=== PATIENT | male | born 1985 | race Caucasian/White ===

== ENCOUNTER 2020-11-30 04:57 | Inpatient (IN) | payer BC ==
[~2020-11-30] VITALS: Ht 185.4 cm; Wt 74.8 kg
--- NOTE | 2020-11-30 05:15 | NUR ---
PATIENT BIBSELF WITH C/O PRESSURE ON CHEST AFER WAKING UP THIS MORNING AND LEFT ARM NUMBNESS 45 MIN. BEFORE ARRIVAL. PATIENT IS A/O X 4, RR EVEN AND UNLABORED, NO SIGNS OF SOB NOTED. PATIENT CONNECTED CARDAIC AND POX.
[2020-11-30 05:38] LABS: BASOPHILS # (AUTO) 0.1 K/uL (0.0-0.2); BASOPHILS % (AUTO) 1.8 % (0.0-2.0); EOSINOPHILS % (AUTO) 0.8 % (0.0-6.0); HEMATOCRIT 43 % (39-51); HEMOGLOBIN 14.8 g/dL (13.5-17.5); LYMPHOCYTES # (AUTO) 0.9 K/uL (0.8-4.8); LYMPHOCYTES % (AUTO) 13.3 % (20.0-44.0); MEAN CORPUSCULAR HGB CONC 35 g/dl (31.0-36.0); MEAN CORPUSCULAR VOLUME 99 fL (80-96); MONOCYTES # (AUTO) 0.8 K/uL (0.1-1.30); MONOCYTES % (AUTO) 11.6 % (2.0-12.0); NEUTROPHILS # (AUTO) 5.1 K/uL (1.8-8.9); NEUTROPHILS % (AUTO) 72.5 % (43.0-81.0); PLATELET COUNT (AUTO) 208 K/uL (150-450); RED BLOOD CELL COUNT(AUTO) 4.33 MIL/uL (4.5-6.0); WHITE BLOOD COUNT (AUTO) 7.1 K/uL (4.3-11.0)
--- NOTE | 2020-11-30 05:40 | NUR ---
RAD AT BEDSIDE
[2020-11-30 05:49] LABS: ALBUMIN 3.1 g/dL (3.4-5.0); BILIRUBIN,DIRECT 0.1 mg/dL (0.0-0.2); BILIRUBIN,TOTAL 0.4 mg/dL (0.2-1.0); CALCIUM, SERUM 8.4 mg/dL (8.5-10.1); POTASSIUM 3.6 mmol/L (3.5-5.1); TOTAL PROTEIN, SERUM 7.1 g/dL (6.4-8.2)
[2020-11-30 06:01] LABS: D-DIMER 0.56 mg/L(FEU (0.17-0.50)
--- NOTE | 2020-11-30 06:03 | NUR ---
per lab, troponin 1.930, aware
--- NOTE | 2020-11-30 06:28 | NUR ---
COVID SWAB COLLECTED AND SENT TO LAB
[2020-11-30] MEDS ORDERED: IV NS 0.9% 1,000 ML BAG IV ONE (06:30)
--- NOTE | 2020-11-30 06:42 | NUR ---
CALLED NURSING SUP FOR BED
[2020-11-30] MEDS ORDERED: IOHEXOL-350 100 ML VIAL IV ONE (06:49)
[2020-11-30] MEDS ORDERED: IV NS 0.9% 250 ML IV ONE (06:50)
--- NOTE | 2020-11-30 06:57 | NUR ---
PATIENT TAKEN TO CT
--- NOTE | 2020-11-30 07:10 | NUR ---
PATIENT RETURNED FROM CT
[2020-11-30] MEDS ORDERED: ASPIRIN 325 MG TABLET PO ONE (07:30)
[2020-11-30] MEDS ORDERED: ASPIRIN 325 MG TABLET ONE (07:45)
[2020-11-30] MEDS ORDERED: DUTA0.5C37 PO (08:10)
[2020-11-30] MEDS ORDERED: [UNRECOGNIZED DRUG - OTHER] (08:10)
--- NOTE | 2020-11-30 15:36 | NUR ---
320 BED 2
--- NOTE | 2020-11-30 15:36 | NUR ---
GOT BED ASSIGNMENT 320-2
--- NOTE | 2020-11-30 16:00 | NUR ---
RN ADMITTING NOTE PT ADMITTED FOR PERIMYOCARDITIS. SEEN BY ON RA WITH NO SOB OR RESPIRATORY DISTRESS. NO CP. NO PAIN OR NAUSEA. A/O X4 AND GREEK SPEAKING. HARD TILE SETTER PLACED. STEADY GAIT. NO SKIN ISSUES IDENTIFIED. BELONGINGS CHECKED AND WITH PT. IV FLUSHED. SAFETY MEASURES IN PLACE. SIDE RAILS RAISED. BED LOWERED. CALL LIGHT WITHIN REACH. WILL CONTINUE TO MONITOR.
[2020-11-30 17:01] VITALS: BP 121/90
--- NOTE | 2020-11-30 18:48 | NUR ---
RN CLOSING NOTE PT AWAKE IN BED RESTING. A/O X4 AND SAMI SPEAKING. NO COMPLAINT OF PAIN OR NAUSEA. ON RA WITH NO SOB OR RESPIRATORY DISTRESS PRESENT. ON SHEET METAL WORKER APPRENTICE. NO EDEMA PRESENT. PT IS SELF AMBULATORY WITH BATHROOM PRIVILEGES. SKIN IS INTACT. CARDIAC DIET. IV PRESENT ON L FA 20G AND FLUSHES WELL. LABS AND ORDERS REVIEWED. SAFETY MEASURES IN PLACE. SIDE RAILS RAISED. BED LOWERED. CALL LIGHT WITHIN REACH. WILL GIVE REPORT TO NIGHT NURSE FOR GRANT.
[2020-11-30] MEDS ORDERED: IV NS 0.9% 1,000 ML IV PRN (19:30)
[2020-11-30] MEDS ORDERED: HYDROCODONE/APAP 10/325MG TABLET PO PRN (19:30)
[2020-11-30] MEDS ORDERED: ONDANSETRON HCL/PF 4 MG/2 ML VIAL IVP PRN (19:30)
[2020-11-30] MEDS ORDERED: ACETAMINOPHEN 325 MG TABLET PO PRN (19:30)
[2020-11-30] MEDS ORDERED: ZOLPIDEM TARTRATE 5 MG TABLET PO PRN (19:30)
--- NOTE | 2020-11-30 19:30 | NUR ---
BOAT REPAIRER NOTES ON TELE MONITOR WITH THE READING OF SINUS TACHYCARDIA AT 103BPM.
--- NOTE | 2020-11-30 19:30 | NUR ---
MANAGING PARTNER OPENING NOTES RECEIVED PATIENT ON BED, AWAKE, A/O X4. ON ROOM AIR WITHOUT COMPLAINTS OF SOB AND PAIN. NOT IN DISTRESS. WITH IV ACCESS AT LEFT FA G20, SALINE LOCKED, FLUSHED, PATENT AND INTACT. SAFETY MEASURES IN PLACED. CALL LIGHT WITHIN REACH. BED ON LOWEST, LOCKED POSITION, SIDE RAILS UP X2. WILL CONTINUE TO MONITOR. RN CLOSING NOTE PT AWAKE IN BED RESTING. A/O X4 AND BULGARIAN SPEAKING. NO COMPLAINT OF PAIN OR NAUSEA. ON RA WITH NO SOB OR RESPIRATORY DISTRESS PRESENT. ON POWDER COATER. NO EDEMA PRESENT. PT IS SELF AMBULATORY WITH BATHROOM PRIVILEGES. SKIN IS INTACT. CARDIAC DIET. IV PRESENT ON L FA 20G AND FLUSHES WELL. LABS AND ORDERS REVIEWED. SAFETY MEASURES IN PLACE. SIDE RAILS RAISED. BED LOWERED. CALL LIGHT WITHIN REACH. WILL GIVE REPORT TO NIGHT NURSE FOR GRANT.
--- NOTE | 2020-11-30 19:33 | NUR ---
EXECUTIVE DIRECTOR SHELTERED WORKSHOP NOTES PATIENT REPORTED TO HAVE PAIN AT THE STERNAL AREA WITH A SCALE OF 4/10. PAIN MEDS GIVEN. WILL CONTINUE TO MONITOR.
[2020-11-30 20:00] VITALS: BP 130/72
[2020-11-30] MEDS: COLCHICINE 0.6 MG TABLET PO SCH (20:22)
[2020-11-30 20:29] LABS: THYROID STIMULATING HORMONE 1.514 uIU/mL (0.358-3.74)
--- NOTE | 2020-11-30 20:40 | NUR ---
RN NOTES INFORMED DR. JORDAN REGARDING PATIENT TROPONIN LEVEL OF 2.764.. DR JORDAN ORDER TO CALLED DR. SON.. WILL CALL DR. SON
--- NOTE | 2020-11-30 20:55 | NUR ---
RN NOTES CALL. DR. SON, WILL WAIT FOR HIM TO CALL BACK
--- NOTE | 2020-11-30 22:35 | NUR ---
RN NOTES INFORMED DR. MOBLEY REGARDING PATIENT TROPONIN OF 2.764. DR. MOBLEY ORDERED TO START HEPARIN DRIP PER [facility] PROTOCOL, ORDER NOTED AND CARRIED OUT
[2020-11-30] MEDS ORDERED: HEPARIN SODIUM, PORCINE 5000 UNITS/1 ML VIAL IV ONE (23:30)
[2020-11-30] MEDS: HEPARIN INFUSION/D5W 500 ML IV PRN (23:59)
[2020-12-01] VITALS: BP 109/73
--- NOTE | 2020-12-01 | NUR ---
RN NOTES START HEPARIN DRIP RUNNING @ 1179 UNITS/HR, WILL CONTINUE TO MONITOR
[2020-12-01 04:00] VITALS: BP 123/69
--- NOTE | 2020-12-01 06:30 | NUR ---
TECHNICIAN PLANT AND MAINTENANCE CLOSING NOTES PATIENT ON BED, AWAKE, A/O X4. ON ROOM AIR WITHOUT COMPLAINTS OF SOB AND PAIN. NOT IN DISTRESS. WITH IV ACCESS AT LEFT FA G20, PATENT AND INTACT WITH IVF OF PNSS AT 75ML/HR. ON HEPARIN DRIP AT 1179U/HR. SAFETY MEASURES IN PLACED. CALL LIGHT WITHIN REACH. BED ON LOWEST, LOCKED POSITION, SIDE RAILS UP X2. WILL ENDORSE TO NEXT SHIFT FOR GRANT..
[2020-12-01 06:34] LABS: BASOPHILS % (AUTO) 0.6 % (0.0-2.0); EOSINOPHILS % (AUTO) 1.7 % (0.0-6.0); HEMATOCRIT 41 % (39-51); HEMOGLOBIN 14.5 g/dL (13.5-17.5); LYMPHOCYTES # (AUTO) 1.6 K/uL (0.8-4.8); LYMPHOCYTES % (AUTO) 30.9 % (20.0-44.0); MEAN CORPUSCULAR HGB CONC 35 g/dl (31.0-36.0); MEAN CORPUSCULAR VOLUME 98 fL (80-96); MONOCYTES # (AUTO) 0.8 K/uL (0.1-1.30); MONOCYTES % (AUTO) 14.4 % (2.0-12.0); NEUTROPHILS # (AUTO) 2.8 K/uL (1.8-8.9); NEUTROPHILS % (AUTO) 52.4 % (43.0-81.0); PLATELET COUNT (AUTO) 220 K/uL (150-450); WHITE BLOOD COUNT (AUTO) 5.3 K/uL (4.3-11.0)
--- NOTE | 2020-12-01 07:23 | NUR ---
GENERATOR WORKER OPENING NOTES RECEIVED PATIENT RESTING IN BED, AWAKE, A/O X4. PATIENT IS BREATHING EVENLY AND NONLABORED ON ROOM AIR. PATIENT DOES NOT COMPLAIN OF SOB AND PAIN. NOT IN DISTRESS. PATIENT NOTED WITH WITH IV ACCESS AT LEFT FA G20, SALINE LOCKED, FLUSHED, PATENT AND INTACT WITH HEPARIN DRIP. SAFETY MEASURES IN PLACED. CALL LIGHT WITHIN REACH. BED ON LOWEST, LOCKED POSITION, SIDE RAILS UP X2. WILL CONTINUE TO MONITOR.
--- NOTE | 2020-12-01 07:51 | NUR ---
RN NOTE RECEIVED REPORT FROM CHERYLE LINK.
[2020-12-01 08:00] VITALS: BP 123/73
[2020-12-01 08:10] LABS: ALBUMIN 2.8 g/dL (3.4-5.0); BILIRUBIN,TOTAL 0.3 mg/dL (0.2-1.0); CALCIUM, SERUM 8.4 mg/dL (8.5-10.1); MAGNESIUM 2.3 mg/dL (1.8-2.4); PHOSPHORUS 3.6 mg/dL (2.5-4.9); POTASSIUM 4.1 mmol/L (3.5-5.1); TOTAL PROTEIN, SERUM 6.6 g/dL (6.4-8.2)
[2020-12-01] MEDS: COLCHICINE 0.6 MG TABLET PO SCH ×2 (08:38→16:11)
[2020-12-01] MEDS: PANTOPRAZOLE 40 MG VIAL IV SCH (08:38)
[2020-12-01] MEDS: HEPARIN INFUSION/D5W 500 ML IV PRN (08:58)
[2020-12-01] MEDS ORDERED: NAPROXEN 500 MG TABLET PO SCH (09:00)
[2020-12-01] MEDS ORDERED: ASPIRIN 325 MG TABLET PO ONE (09:30)
[2020-12-01] MEDS ORDERED: IBUPROFEN 400 MG TABLET PO PRN (10:00)
--- NOTE | 2020-12-01 10:20 | NUR ---
RN OPENING NOTE PT AWAKE IN BED RESTING. A/O X4 AND SERBIAN SPEAKING. NO COMPLAINT OF PAIN OR NAUSEA. ON RA WITH NO SOB OR RESPIRATORY DISTRESS PRESENT. ON SUPERVISOR TELLERS. NO EDEMA PRESENT. PT IS SELF AMBULATORY WITH BATHROOM PRIVILEGES. SKIN IS INTACT. CARDIAC DIET. IV PRESENT ON L FA 20G AND FLUSHES WELL. LABS AND ORDERS REVIEWED. SAFETY MEASURES IN PLACE. SIDE RAILS RAISED. BED LOWERED. CALL LIGHT WITHIN REACH. WILL CONTINUE TO MONITOR.
[2020-12-01 12:00] VITALS: BP 116/61
--- NOTE | 2020-12-01 13:43 | NUR ---
RN NOTE LAB CALLED FROM TROPONIN 4.342. CN AWARE AND AWARE. WILL CONTINUE TO MONITOR.
[2020-12-01 16:00] VITALS: BP 116/61
--- NOTE | 2020-12-01 18:23 | NUR ---
RN OPENING NOTE PT AWAKE IN BED RESTING. A/O X4 AND HUNGARIAN SPEAKING. NO COMPLAINT OF PAIN OR NAUSEA. ON RA WITH NO SOB OR RESPIRATORY DISTRESS PRESENT. ON BLENDING LINE ATTENDANT. NO EDEMA PRESENT. PT IS SELF AMBULATORY WITH BATHROOM PRIVILEGES. SKIN IS INTACT. CARDIAC DIET. IV PRESENT ON L FA 20G AND FLUSHES WELL. LABS AND ORDERS REVIEWED. SAFETY MEASURES IN PLACE. SIDE RAILS RAISED. BED LOWERED. CALL LIGHT WITHIN REACH. WILL CONTINUE TO MONITOR.
--- NOTE | 2020-12-01 18:24 | NUR ---
RN CLOSING NOTE PT AWAKE IN BED RESTING. A/O X4 AND [place] HELENIAN SPEAKING. NO COMPLAINT OF PAIN OR NAUSEA. ON RA WITH NO SOB OR RESPIRATORY DISTRESS PRESENT. ON POOL MANAGER. NO EDEMA PRESENT. PT IS SELF AMBULATORY WITH BATHROOM PRIVILEGES. SKIN IS INTACT. IV PRESENT ON L FA 20G AND FLUSHES WELL. LABS AND ORDERS REVIEWED. SAFETY MEASURES IN PLACE. SIDE RAILS RAISED. BED LOWERED. CALL LIGHT WITHIN REACH. WILL GIVE REPORT TO NIGHT NURSE FOR GRANT.
--- NOTE | 2020-12-01 19:30 | NUR ---
RN OPENING NOTE RECEIVED PATIENT ON BED, AWAKE, A/O X4. ON ROOM AIR WITH NO SOB OR RESPIRATORY DISTRESS PRESENT. ON DRY PRESS OPERATOR HELPER READING AT 78BPM - SINUS RHYTHM. NO EDEMA PRESENT. PT IS SELF AMBULATORY WITH BATHROOM PRIVILEGES. SKIN IS INTACT. ON CARDIAC DIET. WITH IV ACCESS AT L FA G20, INTACT,FLUSHES WELL AND PATENT. SAFETY MEASURES IN PLACED. CALL LIGHT WITHIN REACH. BED ON LOWEST AND LOCKED POSITION, SIDE RAILS UP X2. WILL CONTINUE TO MONITOR.
[2020-12-01 20:00] VITALS: BP 121/67
[2020-12-01] MEDS ORDERED: METOPROLOL TARTRATE 50 MG TABLET PO ONE (22:00)
[2020-12-02] VITALS: BP 111/62
[2020-12-02 04:00] VITALS: BP 107/75
--- NOTE | 2020-12-02 06:36 | NUR ---
OCCUPATIONAL HEALTH RN CLOSING NOTE PATIENT ON BED, AWAKE, A/O X4. ON ROOM AIR WITH NO SOB OR RESPIRATORY DISTRESS PRESENT. WITH NO COMPLAINT OF PAIN AND DISCOMFORT. ON TELE MONITOR READING SINUS RHYTHM AT 84BPM. NO EDEMA PRESENT. PT IS SELF AMBULATORY WITH BATHROOM PRIVILEGES. WITH IV ACCESS AT L FA G20, INTACT AND PATENT. SAFETY MEASURES IN PLACED. BED ON LOWEST AND LOCKED POSITION. CALL LIGHT WITHIN REACH. SIDE RAILS UP X2. WILL ENDORSE TO NEXT SHIFT FOR GRANT.
[2020-12-02 08:00] VITALS: BP 122/79
--- NOTE | 2020-12-02 08:00 | NUR ---
CAPACITOR REPAIRER OPENING NOTE RECEIVED PATIENT IN BED, AWAKE, A/O X4. STABLE ON ROOM AIR - NO SOB NOTED. NO DISTRESS/DISCOMFORT NOTED. ON TELE MONITOR - READS SINUS RHYTHM IN THE 80s. PATIENT IS NPO FOR CARDIAC CTA. IV ACCESS TO LEFT AC #20 - SALINE LOCKED. SAFETY MEASURES IN PLACE. CALL LIGHT WITHIN REACH. WILL CONTINUE TO MONITOR.
[2020-12-02] MEDS: PANTOPRAZOLE 40 MG VIAL IV SCH (08:28)
[2020-12-02] MEDS: COLCHICINE 0.6 MG TABLET PO SCH ×2 (08:28→17:09)
[2020-12-02] MEDS ORDERED: METOPROLOL TARTRATE 50 MG TABLET PO ONE (10:00)
[2020-12-02 12:00] VITALS: BP 116/65
[2020-12-02] MEDS ORDERED: IOHEXOL-350 100 ML VIAL IV ONE (14:18)
[2020-12-02] MEDS ORDERED: NITROGLYCERIN 0.4 MG/TAB BOTTLE ONE (14:18)
[2020-12-02] MEDS ORDERED: CT SWABBABLE VALVE TRANS SET 1 EA INFUS.SET MC ONE (14:19)
[2020-12-02] MEDS ORDERED: METOPROLOL TARTRATE INJ 5 MG/5 ML AMPUL ONE ×4 (14:19→14:46)
[2020-12-02] MEDS ORDERED: IV NS 0.9% 250 ML IV ONE (14:19)
[2020-12-02] MEDS: METOPROLOL TARTRATE INJ 5 MG/5 ML AMPUL IVP PRN ×10 (14:22→15:07)
[2020-12-02] MEDS ORDERED: IV NS 0.9% 500 ML IV PRN (14:30)
[2020-12-02] MEDS ORDERED: NITROGLYCERIN 0.4 MG/TAB BOTTLE SL ONE (14:30)
--- NOTE | 2020-12-02 15:09 | NUR ---
AAOx4 consented to CTA heart; procedure tolerated Metoprolol 5mg IVP every 5 min x 10 doses given and NTG SL; report given to Shruthi LOBATO; sent back to floor via wheelchair
[2020-12-02 16:00] VITALS: BP 116/70
--- NOTE | 2020-12-02 18:22 | NUR ---
MANAGER HOUSEKEEPING CLOSING NOTE PATIENT CURRENTLY LYING IN BED, AWAKE, A/O X4. BOYFRIEND AT BEDSIDE. STABLE ON ROOM AIR - NO SOB NOTED. NO DISTRESS/DISCOMFORT NOTED. ON TELE MONITOR - READS SINUS RHYTHM IN THE 80s. S/P CARDIAC CTA. IV ACCESS TO LEFT AC #20 - SALINE LOCKED. SAFETY MEASURES IN PLACE. CALL LIGHT WITHIN REACH. WILL ENDORSE TO MEAT SLICER NURSE FOR GRANT.
--- NOTE | 2020-12-02 19:57 | NUR ---
SIGN HANGER SUPERVISOR OPENING NOTE RECEIVED PT AWAKE IN BED. A/O X4. PT IS STABLE ON ROOM AIR, NO SOB OR S/S OF RESPIRATORY DISTRESS NOTED. PT ON EXTERNAL BICYCLE REPAIRMAN READING SR IN THE 80s. PT HAS NO C/O PAIN OR DISCOMFORT AT THIS TIME. IV ACCESS NOTED IN LEFT AC #20 SALINE-LOCKED, INTACT AND PATENT. SAFETY PRECAUTIONS MAINTAINED. BED IN LOWEST LOCKED POSITION, HOB ELEVATED, SIDE RAILS UP X2. CALL LIGHT AND TABLE WITHIN REACH. WILL CONTINUE WITH PLAN OF CARE.
[2020-12-02 20:00] VITALS: BP 104/52
[2020-12-02] MEDS ORDERED: PANT40TA2 PO (22:08)
[2020-12-02] MEDS ORDERED: Colchicine PO (22:08)
[2020-12-02] MEDS ORDERED: IBUP-1953 PO (22:08)
[2020-12-02] MEDS ORDERED: COLC0.6C3 PO (22:09)
--- NOTE | 2020-12-02 23:45 | NUR ---
FIELD RESEARCH ASSISTANT NOTE PT DISCHARGED HOME WITH SELF CARE AT THIS TIME. PT MEDICALLY STABLE AND CLEARED FOR DISCHARGE BY DR. MOBLEY. ALL PT CARE, NEEDS, MEDICATIONS, AND TREATMENT ADMINISTERED ORDERED. ALL DISCHARGE INSTRUCTIONS PROVIDED. PT VERBALIZED UNDERSTANDING. PT KEPT CLEAN AND DRY. BELONGING LIST ACCOUNTED FOR, SIGNED BY PT, AND WITH PT. ID BAND REMOVED. EXTERNAL PRODUCT CONSULTANT REMOVED. IV ACCESS REMOVED, PRESSURE APPLIED, AND SECURED WITH GAUZE AND TAPE. NO S/O BLEEDING NOTED. PT ACCOMPANIED TO LOBBY BY CHERYLE ROCK. DR. MOBLEY AND VINCENZO, CHARGE NURSE AWARE.
== END 2020-12-02 23:45 | disposition home or self-care (01) | DRG 315 ==
LOC: ER 05:01 → TELE 15:37
PROVIDERS: ADMIT Nurse Practitioner Acute Care; ATTEND Nurse Practitioner Acute Care
DX: I51.4 Myocarditis, unspecified (principal); I31.9 Disease of pericardium, unspecified; D75.89 Other specified diseases of blood and blood-forming organs; F14.90 Cocaine use, unspecified, uncomplicated; Z91.018 Allergy to other foods; Z86.19 Personal history of other infectious and parasitic diseases; Z20.822 Contact with and (suspected) exposure to COVID-19
CPT/HCPCS: 36415; 71045-TC; 75574; 80048-TC; 80053-TC; 80061-TC; 80076-TC; 83735-TC; 84100-TC; 84443-TC; 84484-TC; 85025-TC; 85378-TC; 85610-TC; 85652-TC; 85730-TC; 86140-TC; 87081-TC; 93307-TC; C9113; C9803; G0378; J1644; J3490; J7030; J7050; Q9967